=== PATIENT | male | born 1990 | race Caucasian/White ===

== ENCOUNTER 2024-08-11 09:01 | Emergency (ER) | payer SELFPAY ==
[~2024-08-11 09:01] MED LIST: CYCLOBENZAPRINE5 M3 PO
[2024-08-11 09:35] LABS: BASO % 0.1 % (0.0-1.0); EOS # 0.1 10*3/uL (0.0-0.4); EOS % 1.7 % (1.0-4.0); HEMATOCRIT 44.1 % (42.0-52.0); MEAN CELL VOLUME 90.6 fl (80.0-94.0); MEAN CORPUSCULAR HGB 30.8 pg (27.0-31.0); MEAN PLATELET VOLUME 8.5 fl (9.6-12.3); MONO # 0.5 10*3/uL (0.1-1.0); MONO % 6.6 % (3.0-9.0); NEUT # 5.4 10*3/uL (2.3-7.9); NEUT % 66.8 % (47.0-73.0); PLATELET COUNT AUTOMATED 335 10*3/uL (130-400); RED BLOOD COUNT 4.87 10*6/uL (4.50-5.90)
[2024-08-11 09:57] LABS: BUN 6 mg/dl (9-23); CHLORIDE 107 mmol/L (98-107); ETHYL ALCOHOL 119.1 mg/dl (<3); POTASSIUM 3.8 mmol/L (3.4-5.1)
[2024-08-11 10:56] LABS: BILIRUBIN Negative (Negative); BLOOD Negative (Negative); CLARITY Clear (Clear); COLOR Yellow (Yellow); GLUCOSE Negative (Negative); KETONE Negative (Negative); LEUKO ESTERASE Negative (Negative); NITRITE Negative (Negative); PH 6.5 (4.5-8.0); UROBILINOGEN 0.2 E.U./dl (0.0-1.0)
[2024-08-11 11:03] LABS: URINE AMPHETAMINES Negative (1000ng/ml); URINE BARBITURATES Negative (200ng/ml); URINE BENZODIAZEPINES Negative (200ng/ml); URINE CANNABINOIDS (THC) Positive (50ng/ml); URINE COCAINE Positive (300ng/ml); URINE METHADONE Negative (300ng/ml); URINE OPIATES Negative (300ng/ml); URINE PHENCYCLIDINE Negative (25ng/ml)
[2024-08-11 11:06] LABS: BACTERIA 1+
[2024-08-11 11:07] LABS: MUCOUS 2+
[2024-08-11] MEDS ORDERED: traMADol Hydrochloride 50 MG TAB PO ONE (18:10)
[2024-08-12] MEDS ORDERED: NICOTINE POLACRILEX 4 MG (TUBE OF 27 LOZENGES) PO PRN (09:10)
== END 2024-08-12 11:27 | disposition home or self-care (01) ==
LOC: ED 09:01
PROVIDERS: Emergency Medicine
DX: S00.83XA Contusion of other part of head, initial encounter (principal); S00.12XA Contusion of left eyelid and periocular area, initial encounter; S60.511A Abrasion of right hand, initial encounter; Z20.822 Contact with and (suspected) exposure to COVID-19; F43.21 Adjustment disorder with depressed mood; F19.10 Other psychoactive substance abuse, uncomplicated; F41.9 Anxiety disorder, unspecified; Y04.2XXA Assault by strike against or bumped into by another person, initial encounter; Y93.89 Activity, other specified; Y92.89 Other specified places as the place of occurrence of the external cause; Y99.8 Other external cause status

== ENCOUNTER 2024-09-28 11:59 | Emergency (ER) | payer OTHER ==
[~2024-09-28] VITALS: Ht 182.8 cm; Wt 77.1 kg
[2024-09-28] MEDS ORDERED: Acetaminophen/Hydrocodone 5 MG/325 MG TABLET PO ONE (12:20)
[2024-09-28] MEDS ORDERED: NAPROSYN500 MG PO (14:36)
== END 2024-09-28 14:35 | disposition home or self-care (01) ==
LOC: ED 11:59
DX: M54.2 Cervicalgia (principal); M54.50 Low back pain, unspecified; R51.9 Headache, unspecified; F32.A Depression, unspecified; F41.9 Anxiety disorder, unspecified; V89.2XXA Person injured in unspecified motor-vehicle accident, traffic, initial encounter; Y93.89 Activity, other specified; Y92.488 Other paved roadways as the place of occurrence of the external cause; Y99.8 Other external cause status